=== PATIENT | female | born 1995 | race Caucasian/White ===

== ENCOUNTER 2019-10-15 02:42 | Inpatient (IN) | payer OTHER, SELFPAY ==
[2019-10-15] VITALS (25 sets, daily range): BP systolic 95–126; BP diastolic 36–87; PULSE 57–97; RESP 16–18; TEMP 36.1–37.3; O2SAT 97–100; BMI 31.7
[2019-10-15] MEDS: Lactated Ringers 1,000 ML 999 ML IV (03:45)
[2019-10-15 04:14] LABS: Absolute Lymphocyte Count 3.58 X10^3/uL (0.83-4.51); Absolute Neutrophil Count 9.2 X10^3/uL (2.0-7.7); Basophil# 0.08 X10^3/uL; Basophil% 0.6 % (0-1); Eosinophil# 0.12 X10^3/uL; Eosinophils% 0.8 % (0-5); Hematocrit 34.1 % (37-47); Hemoglobin 10.9 g/dL (12.0-15.0); Lymphocyte # 3.58 X10^3/ul (4.0); Lymphocyte % 24.7 % (19-41); Mean Corpuscular Hgb 27.7 pg (27.0-32.0); Mean Corpuscular Volume 86.5 fL (81-99); Mean Platelet Vol. 12.4 fl (6.2-12.0); Monocyte# 1.36 X10^3/uL; Monocyte% 9.4 % (0-10); NRBC Flagged by Analyzer 0 % (0-5); Neutrophil # 9.21 X10^3/uL (2.7-7.7); Neutrophil % 63.6 % (47-70); Platelet Count 198 K/mm3 (150-450); RBC Distribution Width CV 12.4 % (11.6-14.6); RBC Distribution Width SD 38.9 fl (35.1-43.9); Red Blood Count 3.94 M/mm3 (4.2-5.4); White Blood Count 14.5 K/mm3 (4.4-11.0)
[2019-10-15] MEDS: Sodium Citrate/Citric Acid 30 ML UDC PO (06:07)
[2019-10-15] MEDS: Lactated Ringers 1,000 ML 150 ML IV (06:07)
--- NOTE | 2019-10-15 06:13 | HP.PCM_ITS ---
- Problem List (1) 39 weeks gestation of Status: Acute (2) History of shoulder dystocia in prior Status: Acute (3) History of third degree perineal laceration Status: Acute (4) LGA (large for gestational age) fetus Status: Acute History Date of Admission: 10/15/19 Final IZABELLA: 10/21/19 Gestational age: 39 Weeks and 1 Days History of this : This is a 24 year-old, G 2, P 1, at 39 weeks gestational age who presents with SROM at home for clear fluid around 1 AM. She was a scheduled at 730 this morning. She is feeling mild contractions. No bleeding. Good movement. Allergies No Known Allergies Allergy (Verified 10/15/19 04:11) Home Medications: Home Medications NK 10/15/19 Smoking Status: Never smoker Number of Fetus(es): 1 NST - FHR Rate Baby A FHR Category:: Category I Uterine Activity:: ctx q 4-5 min History Past Pregnancies: Past Pregnancies Delivery Date Name GA/ Weeks Outcome Route Wt Sex Labor Length Anesthesia Delivery Location Provider FOB 40 wks 60 sec shoulder dystocia 8lb 8oz Labs: See [facility] record Expected Delivery Method: Primary Section Physical Exam Vitals: Vital Signs Temp Pulse BP Pulse Ox 99.2 F H 88 120/79 97 10/15/19 03:17 10/15/19 05:57 10/15/19 05:57 10/15/19 03:17 General: Alert, No apparent distress HEENT: Atraumatic Cardiovascular: Regular rate Lungs: Clear to auscultation Abdomen: Soft, Gravid Extremities:: No edema Neurological: Neuro grossly intact [employer]: Normal external genitalia Estimated gestational size: Large for gestational age Presentation: Cephalic Cervix Dilation (cm): 2 Station: -3 Effacement (%): 50 Assessment/Plan All Active Problems 39 weeks gestation of (Acute) History of shoulder dystocia in prior (Acute) History of third degree perineal laceration (Acute) LGA (large for gestational age) fetus (Acute) This is a 24 year-old, G 2, P 1, at 39 weeks gestational age with SROM. She was scheduled for a section today. She has a history of a shoulder dystocia and a third-degree perineal laceration with an 8 pound in the prior . A third trimester growth ultrasound was obtained in this , and this baby is felt to be the same size as the prior. Discussed risk of recurrence with a shoulder dystocia and third-degree perineal laceration. Best risks of a shoulder dystocia and third-degree perineal laceration. Discussed risks and benefits of an elective 39-week induction. Discussed risks and benefits of a scheduled primary section. After discussion and all questions being answered, the patient desires to proceed with a section. She understands the risk, benefits, alternatives of a section. To proceed with scheduled surgery. has otherwise been uncomplicated. She is rubella nonimmune and will need MMR . Otherwise routine preop and Intra-Op care.
[2019-10-15] MEDS: Cefazolin 2 GM in 0.9% Normal Saline 100 ML IV (06:30)
--- NOTE | 2019-10-15 07:46 | PCM.OPRPT ---
Problem List (1) 39 weeks gestation of Status: Acute (2) History of shoulder dystocia in prior Status: Acute (3) History of third degree perineal laceration Status: Acute (4) LGA (large for gestational age) fetus Status: Acute Report of Operation Date of Procedure: 10/15/19 Pre-Operative Diagnosis: 39 week gestation, LGA, history of shoulder dystocia, history of 3rd degree perineal laceration Post-Operative Diagnosis: As above Surgery/Procedure Performed:: PLTCS via pfannenstiel incision Description of Surgical Findings:: Normal uterus, bilateral tubes, bilateral ovaries. Viable female infant in cephalic presentation weighing 8 pounds 1 ounce. Normal appearing placenta with three-vessel cord. Type of Anesthesia:: Spinal Special Medications: None Specimen's removed: Placenta Drains: Davidson Estimated Blood Loss (mL): 1000 Description of Procedure: Patient was taken to the operating room where spinal anesthesia was found to be adequate. She was prepped and draped in the dorsal position with a leftward tilt. A Pfannenstiel skin incision was made with a scalpel and carried down to the underlying layer of fascia. The fascia was incised the midline. The fascia was extended laterally using Matos scissors. The fascia was dissected off the rectus muscles with a combination of sharp and blunt dissection. The rectus muscles were in the midline and the peritoneum was entered with good visualization of the bladder. The peritoneal incision was extended bluntly. A bladder flap was created. A low transverse incision was made on the uterus with a scalpel. Infant was delivered without any force or delay in vertex presentation. Viable female infant was delivered easily through the hysterotomy. The cord was clamped and cut after 60 sec delay and the was handed off to the nursery staff. The placenta was removed with manual extraction and noted to be normal-appearing with three-vessel cord. The uterus was exteriorized from the abdomen. The uterus was cleared of all clot and debris. Hysterotomy was closed in usual fashion with Vicryl in a double layer closure. Several additional [id number] sutures were placed for hemostasis. Hysterotomy was noted to be hemostatic. The uterus was placed back in the abdomen. Arrista was placed over the hysterotomy. Peritoneum was closed in a running fashion with Vicryl. The fascia was closed in running fashion with Vicryl. Subcutaneous space was irrigated and made hemostatic with Bovie cautery. The subcutaneous space was reapproximated with Vicryl. The skin was closed in subcuticular fashion using Monocryl. Steri-Strips and dressing were placed. Instrument and sponge counts were correct. The patient was taken to recovery in stable condition. Grafts/Implants Used: None - Admit VTE Documentation VTE Present on Admission: No VTE Mechan Device Prophylaxis: SCD's Delivery Indications for : Desires elective sterilization Drain: Davidson to straight drain Cord Entanglement: Around neck x 1, loose Nuchal Cord Compression: Without compression Cord Vessel Description: 3 Vessels Infant Gender: Female (1 minute): 9 (5 minute): 9 Delayed cord clamping: Yes Antibiotic Given: Ancef 2 grams IV x1 Pt instructed on risks of surgery: Bleeding, Infection, Need for Future C-Sections, Injury to surrounding structure(s) including bowel and bladder Complications: None - Admit VTE Documentation VTE Present on Admission: No VTE Mechan Device Prophylaxis: SCD's VTE Pharm Prophylaxis ordered?: Yes
[2019-10-15] MEDS: Oxytocin 30 units/NS 500 ml 30 UNITS/500 ML IV.SOLN 167 UNITS IV (08:00)
[2019-10-15] MEDS: Lactated Ringers 1,000 ML 100 ML IV (11:19)
[2019-10-15] MEDS: Ondansetron 4 MG/2 ML Vial IV (11:25)
[2019-10-15] MEDS: DiphenhydrAMINE 25 MG Capsule PO (12:52)
[2019-10-15] MEDS: Ketorolac 30 MG/ML Syringe IV ×2 (13:30→20:30)
[2019-10-15] MEDS: Enoxaparin 40 MG/0.4 ML Syringe SC (20:29)
[2019-10-15] MEDS: 0.9% Saline Lock 10 ML Syringe IV (20:56)
[2019-10-16 00:57] VITALS: BP 97/65; PULSE 71; RESP 18; TEMP 36.6
[2019-10-16] MEDS: Ketorolac 30 MG/ML Syringe IV ×2 (02:05→08:52)
[2019-10-16] MEDS: 0.9% Saline Lock 10 ML Syringe IV ×2 (02:06→08:52)
[2019-10-16 05:17] VITALS: BP 103/42; RESP 18; TEMP 36.6
--- NOTE | 2019-10-16 05:43 | NURSING ---
RN attempted blood draw x2 for AM repeat CBC with no drawback attained. This RN asked Rima Bradley RN to attempt blood draw.
[2019-10-16 05:56] LABS: Hematocrit 28.9 % (37-47); Hemoglobin 8.7 g/dL (12.0-15.0); Mean Corp Hgb Conc 30.1 g/dL (32-36); Mean Corpuscular Hgb 27.1 pg (27.0-32.0); Mean Platelet Vol. 12.3 fl (6.2-12.0); Platelet Count 173 K/mm3 (150-450); RBC Distribution Width CV 12.8 % (11.6-14.6); RBC Distribution Width SD 42.2 fl (35.1-43.9); Red Blood Count 3.21 M/mm3 (4.2-5.4); White Blood Count 15.9 K/mm3 (4.4-11.0)
--- NOTE | 2019-10-16 07:42 | PCM.PN.OB ---
Patient Problems: Active and Suspected Problems 39 weeks gestation of (Acute) History of shoulder dystocia in prior (Acute) History of third degree perineal laceration (Acute) LGA (large for gestational age) fetus (Acute) Subjective: Doing well. Pain well controlled. Ambulating voiding without difficulty. Lochia normal. She denies lightheadedness, dizziness, chest pain, shortness of breath, leg pain. She is requesting to go home today. - Physical Exam Vitals/I&O's: Vital Signs Temp Pulse Resp BP Pulse Ox 97.8 F 71 18 103/42 L 100 10/16/19 05:17 10/16/19 00:57 10/16/19 05:17 10/16/19 05:17 10/15/19 20:50 Oxygen Delivery Method Room Air Weight: 162 lb 7.691 oz Body Mass Index (BMI) 31.7 Intake and Output for Last 24 Hours 10/14/19 10/15/19 10/16/19 23:59 23:59 23:59 Intake Total 2708.64 / 2708.64 Output Total 700 / 700 Balance 2007.64 / 2007.64 General: Alert, No apparent distress HEENT: Atraumatic Abdomen: Soft, Non Tender, - - FF@U Extremities: No Calf Tenderness Skin: No rashes Neurological: Neuro grossly intact Psych/Mental Status: Normal Affect, Appropriate Laboratory Results 10/16/19 05:40: WBC 15.9 H, RBC 3.21 L, Hgb 8.7 L, Hct 28.9 L, MCV 90.0, MCH 27.1, MCHC 30.1 L D, RDW Std Deviation 42.2, RDW Coeff of Mary 12.8, Plt Count 173, MPV 12.3 H Current Medications Acetaminophen (Tylenol) 1,000 mg PO Q8H PRN PRN Reason: Pain Score 1-3/10 Bisacodyl (Dulcolax) 10 mg RECTAL UD PRN PRN Reason: If no BM Diphenhydramine HCl (Benadryl) 25 mg PO Q6H PRN PRN PRN Reason: ITCHING Stop: 10/16/19 09:16 Last Admin: 10/15/19 12:52 Dose: 25 mg Documented by: Enoxaparin Sodium (Lovenox) 40 mg SC DAILY [facility] Last Admin: 10/15/19 20:29 Dose: 40 mg Documented by: Hydrocortisone (Hytone) 1 applic TOPICAL TID PRN PRN; Protocol PRN Reason: Discomfort Naloxone HCl 4 mg/ Dextrose 504 mls @ 0 mls/hr IV .Q0M PRN; Protocol PRN Reason: Respiratory depression Ibuprofen (Motrin) 600 mg PO Q6H PRN PRN PRN Reason: Pain Score 1-3/10 Ketorolac Tromethamine (Toradol (Bkc)) 30 mg IV Q6H [facility] Stop: 10/17/19 08:01 Last Admin: 10/16/19 02:05 Dose: 30 mg Documented by: Methylergonovine Maleate (Methergine) 0.2 mg IM X1 PRN PRN Reason: Uterine Atony Naloxone HCl (Narcan) 0.02 mg IV Q1M PRN PRN Reason: RR <10 and pt unresponsive Ondansetron HCl (Zofran) 4 mg IV Q4H PRN PRN PRN Reason: Nausea Last Admin: 10/15/19 11:25 Dose: 4 mg Documented by: Oxycodone HCl (Oxyir) 5 - 10 mg PO Q4H PRN PRN PRN Reason: Pain Score 4-10/10 Prochlorperazine Edisylate (Compazine Iv) 10 mg IV Q6H PRN PRN PRN Reason: NAUSEA Senna/Docusate Sodium (Senokot-S, Lorelei-Colace) 0 tablet PO DAILY PRN PRN Reason: Constipation Simethicone (Mylicon) 80 mg PO PCHS PRN PRN Reason: Indigestion/stomach pain Sodium Chloride () 5 - 15 ml IV UD PRN PRN Reason: SALINE FLUSH Last Admin: 10/16/19 02:06 Dose: 10 ml Documented by: Medical Necessity - Tobacco Use Smoking Status: Never smoker Assessment/Plan All Active Problems 39 weeks gestation of (Acute) History of shoulder dystocia in prior (Acute) History of third degree perineal laceration (Acute) LGA (large for gestational age) fetus (Acute) POD#1 s/p PLTCS - Doing well and desires to go home today - Dispo: Discharge instructions and follow up reviewed
--- NOTE | 2019-10-16 07:51 | PCM.DCCSEC ---
Discharge Diet: No Restrictions Discharge Activity: May not drive while taking narcotic pain medications., May Shower, May Take a Tub Bath May resume sexual activity in: 6 weeks Ice area for (Minutes): 15 Weight Bearing Status: Weight bearing as tolerated Lifting Restrictions: Nothing greater than 15 lbs Call your doctor if your incision/area has: Sudden Increased Bleeding, Increased Pain/ Swelling, Increased Redness, Foul Smelling Discharge, Swelling at the incision site Call your doctor if you observe: Fever of 101 or Higher, Inability to urinate, Inability to have a bowel movement, Using more than one pad per hour, Shortness of breath, Dizziness, Fainting spells, Chest pain, Increased palpitations (irregular heartbeat), Calf discomfort, Uncontrolled pain Suture Line Care: Avoid Pulling/Pushing, Avoid Pinching/Bending Remove Dressing in (days):: 2 Cleanse incision/area with: Soap & Water Additional Instructions: If you experience any of the following, contact your healthcare provider. Bleeding that soaks a pad every hour for 2 hours Fever 100.4 or higher Unrelieved incision or abdominal pain Swelling, redness, discharge or bleeding from your incision or episiotomy site Your incision begins to separate Problems urinating (including inability to urinate or burning while urinating). Visual changes Severe headache Flu-like symptoms Pain or redness in one of both of your breasts Pain, warmth, tenderness or swelling in your legs, especially the calf area Frequent nausea and vomiting Symptoms of depression or anxiety If you experience any of the following, call 911 or go to the nearest Emergency Room. Chest pain Problems breathing Seizure activity Partial or complete paralysis of a body part, slurred speech, weakness or drooping of the face, or a sudden inability to walk or hold your balance Allergies/Adverse Reactions: Allergies No Known Allergies Allergy (Verified 10/15/19 04:11) Medications to take at Discharge Docusate Sodium [Colace] 100 mg PO BID #60 cap 10/16/19 Ferrous Sulfate 325 mg PO DAILY #60 tab 10/16/19 Ibuprofen [Motrin] 800 mg PO TID PRN PRN #60 tab 10/16/19 Oxycodone HCl/Acetaminophen [Percocet 5/325] 1 tablet PO Q6H PRN PRN 7 Days #28 tablet 10/16/19 The following prescriptions were given: Docusate Sodium [Colace] 100 mg PO BID #60 cap Transmission Status: [facility] Ferrous Sulfate 325 mg PO DAILY #60 tab Transmission Status: Pending to [facility] Ibuprofen [Motrin] 800 mg PO TID PRN PRN #60 tab PRN Reason: Pain Score 1-10/10 Transmission Status: [facility] to [facility] Oxycodone HCl/Acetaminophen [Percocet 5/325] 1 tablet PO Q6H PRN PRN 7 Days #28 tablet PRN Reason: Pain Score 6-10/10 Transmission Status: [facility] Follow-Up: Call to make an appointment with your doctor for an incision check in 1-2 weeks. You will also need a 6 week post- follow up appointment. Test results from this visit will be discussed in further detail at your follow-up appointment, if applicable. Please Follow Up With: Lu Cerda DO When: 1 week (can be virtual visit) and 6 weeks for visit Primary Care Physician: Care Physician,No Primary [Primary Care Provider] -
[2019-10-16 08:00] VITALS: BP 107/65; PULSE 69; RESP 16; TEMP 36.4
[2019-10-16] MEDS: Enoxaparin 40 MG/0.4 ML Syringe SC (08:53)
--- NOTE | 2019-10-16 12:15 | NURSING ---
pt refuses the MMR
== END 2019-10-16 13:15 | disposition home or self-care (01) | DRG 788 ==
PROVIDERS: Advanced Practice Midwife; Admitting Provider Obstetrics & Gynecology; Referring Provider Obstetrics & Gynecology; Visit Provider Obstetrics & Gynecology
PROC: 10D00Z1 Extraction of Products of Conception, Low, Open Approach (ICD-10-PCS; CPT 59514; principal; 2019-10-15 07:15)
DX: O36.63X0 Maternal care for excessive fetal growth, third trimester, not applicable or unspecified (principal); O69.81X0 Labor and delivery complicated by cord around neck, without compression, not applicable or unspecified; Z37.0 Single live birth; Z3A.39 39 weeks gestation of pregnancy; Z87.59 Personal history of other complications of pregnancy, childbirth and the puerperium; Z11.59 Encounter for screening for other viral diseases
CPT/HCPCS: 59050; 85025; 85027; 86850; 86900; 86901; 87635; 99218; G2023; J7120; A4216; G0378; J2405; U0004

== ENCOUNTER 2019-11-28 06:12 | Emergency (ER) | payer OTHER, SELFPAY ==
[2019-10-15 04:15] VITALS: BMI 31.7
[2019-11-28 06:13] VITALS: BP 128/71; PULSE 122; RESP 16; TEMP 39.4; O2SAT 97; BMI 26.9
--- NOTE | 2019-11-28 06:17 | EKG12_ITS ---
Test Reason : SOB Blood Pressure : / mmHG Vent. Rate : 099 BPM Atrial Rate : 099 BPM P-R Int : 140 ms QRS Dur : 070 ms QT Int : 324 ms P-R-T Axes : 047 040 012 degrees QTc Int : 415 ms Normal sinus rhythm Normal ECG Confirmed by PEDRO GUTIERREZ, YINA ([id number]), commissioning editor BABS CLANCY ([id number]) on 11/30/2019 1:04:09 PM Referred By: JONES Confirmed By:YINA VASQUEZ MD
--- NOTE | 2019-11-28 06:19 | ED.VIS.GEN ---
History of Present Illness Chief Complaint: Abd Pain Informant: Patient Narrative: 24-year-old female with no significant past medical history presents with concern for left side pain. States that she is 6 weeks and presents with pain in her left ribs worse with inspiration. States is been present for the past 3 days. States that she cannot catch her breath this evening. Patient had . No drainage from her incision. No urinary symptoms. Patient felt that her pain was secondary to her beginning to exercise again by doing crunches and walking. Denies any fever, chills, cough, nausea, vomiting, abdominal pain, vaginal bleeding or discharge. Past Medical History - Allergies and Home Meds Allergies/Adverse Reactions: Allergies No Known Allergies Allergy (Verified 11/28/19 06:17) Primary Care Physician: Keila Charles MD [STAFF PHYSICIAN] - 3-5 Days if not improving Prior records reviewed: Yes Past Medical History: None Surgical History: - - C section Lives: Spouse/ Significant Other Smoking Status: Never smoker Alcohol: None Drugs: None Review of Systems General: Denies: Chills, Fever, Sweats Eyes: Denies: Visual changes - bilaterally, Diplopia ENT: Denies: Rhinorrhea, Sore throat Cardiovascular: Denies: Chest pain, Palpitations Respiratory: Reports: Dyspnea. Denies: Cough, Dyspnea on exertion Gastrointestinal: Denies: Abdominal pain, Nausea, Vomiting, Diarrhea, Melena, Hematochezia Genitourinary: Denies: Dysuria, Hematuria, Frequency Musculoskeletal: Denies: Back pain, Extremity Pain Skin: Denies: Rash, Wounds Neurological: Denies: Headache, Weakness, Numbness Physical Exam Vital Signs/Narrative: Vital Signs Temp Pulse Resp BP Pulse Ox 11/28/19 06:13 102.9 F H 122 H 16 128/71 H 97 General: Well nourished, Well developed, No Acute Distress Head: Normocephalic, Atraumatic Eyes: Perrl, EOMI ENT: Moist mucous membranes, No rhinorrhea Neck: Supple, Nontender Cardiovascular: Regular rhythm, No murmurs, Tachycardia Respiratory: No distress, CTA bilaterally, Chest nontender Abdomen: Soft, Nontender, Nondistended, Normal bowel sounds Back: Nontender, Normal Inspection Extremities: Nontender, No edema Skin: Normal color, No rash Neurological: Alert, Oriented x3, Cranial nerves II-XII grossly intact, Normal Strength, Normal Sensation Psychological: Normal affect, Normal Mood Diagnostic/Tx/Re-eval - Medical Decision Making Appears well and nontoxic. Tachycardic upon arrival. Shortness of breath worse with inspiration. Sepsis work-up was ordered and patient was signed out to Dr. Gaines at 0700. ED Disposition - Plan for ED Patient: Disposition: Home or Assisted Living Instructions: ED FUO Adult Referrals: Keila Charles MD [STAFF PHYSICIAN] - 3-5 Days if not improving
[2019-11-28 06:27] VITALS: TEMP 39.2
[2019-11-28] MEDS: Acetaminophen 500 MG Tablet 1000 MG PO (06:31)
[2019-11-28] MEDS: 0.9% Normal Saline 1,000 ML 999 ML IV (06:31)
[2019-11-28 06:36] LABS: Absolute Lymphocyte Count 0.99 X10^3/uL (0.83-4.51); Absolute Neutrophil Count 9.9 X10^3/uL (2.0-7.7); Basophil# 0.03 X10^3/uL; Basophil% 0.3 % (0-1); Eosinophil# 0.04 X10^3/uL; Eosinophils% 0.3 % (0-5); Hematocrit 35.1 % (37-47); Hemoglobin 10.8 g/dL (12.0-15.0); Lymphocyte # 0.99 X10^3/ul (4.0); Lymphocyte % 8.3 % (19-41); Mean Corp Hgb Conc 30.8 g/dL (32-36); Mean Corpuscular Hgb 26.6 pg (27.0-32.0); Mean Corpuscular Volume 86.5 fL (81-99); Mean Platelet Vol. 10.7 fl (6.2-12.0); Monocyte# 0.83 X10^3/uL; NRBC Flagged by Analyzer 0 % (0-5); Neutrophil % 83.5 % (47-70); Platelet Count 199 K/mm3 (150-450); RBC Distribution Width CV 12.7 % (11.6-14.6); RBC Distribution Width SD 40.3 fl (35.1-43.9); Red Blood Count 4.06 M/mm3 (4.2-5.4); White Blood Count 11.9 K/mm3 (4.4-11.0)
[2019-11-28 06:37] LABS: Bacteria 0 SEEN /hpf (None Seen); Mucous, Urine 0 SEEN /hpf (<or=2+); Red Blood Cells-Urine 0 SEEN /hpf (0-5)
[2019-11-28 06:45] LABS: Color, Urine Yellow (Yellow); Glucose, Dipstick Normal (Normal); Ketone-Dipstick Negative (Negative); Leukocyte Esterase-Dipstick 500 /ul (Negative); Nitrite-Dipstick Negative (Negative); Occult Blood-Urine 25 /ul (Negative); Protein-Dipstick 30 mg/dl (Negative); Urine Bilirubin Dipstick Negative (Negative); Urine Clarity Sl. Cloudy (Clear); Urine Urobilinogen Normal (Normal)
[2019-11-28 06:52] VITALS: BP 92/77; PULSE 92; RESP 23; TEMP 39.2; O2SAT 95
[2019-11-28 06:57] LABS: ALB/GLOB Ratio 0.7 RATIO (0.9-2.4); AST(SGOT) 20 U/L (15-37); Alanine Aminotransfer ALT/SGPT 23 U/L (13-56); Albumin, Serum 3.1 g/dL (3.2-5.0); Alkaline Phosphatase 112 U/L (45-117); Anion Gap 7 (5-15); BUN 8 mg/dL (7-18); BUN/Creat Ratio 7.8 RATIO (10-20); Calcium,Total 8.7 mg/dL (8.5-10.1); Chloride 106 mmol/L (98-107); Creatinine, Serum 1.03 mg/dL (0.55-1.02); EST Glomerular Filtration Rate 69 mL/min (>60); Est Glom Filt Rate - Afr Amer 83 mL/min (>60); Estimated Creatinine Clearance 59.45 ml/min; Globulin 4.5 g/dL (2.2-4.2); Glucose 123 mg/dL (74-106); Potassium 3.4 mmol/L (3.5-5.1); Protein, Total 7.6 g/dL (6.4-8.2); Sodium Level 138 mmol/L (136-145)
[2019-11-28 06:59] LABS: Squamous Epithelial Cells - UA 10-25 SEEN /hpf (5-10)
[2019-11-28 07:00] LABS: White Blood Cells 50-100 SEEN /hpf (0-5)
--- NOTE | 2019-11-28 07:00 | RAD_ITS ---
STUDY: X-RAY CHEST REASON FOR EXAM: Female, 24 years old. DYSPNEA. 6 WEEKS POST . PATIENT STARTED EXERCISING THIS WEEK AND HAS INCREASING PAIN WITH BREATHING ALONG BOTH SIDES OF LOWER RIBS TECHNIQUE: Single AP portable view of the chest. COMPARISON: None. FINDINGS: The lungs are clear and expanded. There is no demonstrated pleural abnormality. Normal size heart. Normal mediastinum and michell. Normal visualized pulmonary arteries. Normal visualized aortic arch and descending thoracic aorta. Normal visualized thoracic spine. Normal visualized ribs, clavicles, and shoulders. There is no demonstrated abnormality of the visualized soft tissue structures of the upper abdomen. RAD/Chest 1 View (Portable) IMPRESSION: Normal x-ray examination of the chest. Electronically Signed: Romario Vaca MD at 7:17 EDT Tel , Service support ,
[2019-11-28 07:01] LABS: Lactic Acid 0.7 mmol/L (0.4-1.9)
--- NOTE | 2019-11-28 07:16 | CT_ITS ---
STUDY: CTA CHEST REASON FOR EXAM: Female, 24 years old. PT STATED RIB PAIN WITH EXERCISE 6 WEEKS RADIATION DOSAGE (If Supplied By Facility): CTDIvol = ( 5.38 ) mGy, DLP = ( 145.37 ) mGycm TECHNIQUE: The examination was performed with the intravenous administration of 100ml isovue 370. Post-processing of the angiographic images was performed, with multiplanar reformation and 3D reconstruction. Individualized dose optimization techniques were used for this CT. COMPARISON: None. FINDINGS: Normal enhancement of the main pulmonary artery and right and left pulmonary arteries. Normal enhancement of the bilateral peripheral pulmonary arteries. There is no demonstrated pulmonary embolism. Normal thoracic aorta and visualized great vessels. There is no demonstrated aortic dissection. Normal heart and pericardium. Normal mediastinum. Normal hilar regions. Normal visualized trachea and bronchi. The lungs are well expanded. Normal pulmonary parenchyma. Normal pleura. Normal chest wall structures. Normal osseous structures. Normal visualized upper abdomen. CT/CTA Chest W/WO Contrast IMPRESSION: Normal CTA chest examination, without a demonstrated pulmonary embolism or arterial dissection. Electronically Signed: Romario Vaca MD at 8:05 EDT Tel , Service support ,
[2019-11-28 07:25] VITALS: BP 102/62; PULSE 79; RESP 20; O2SAT 97
[2019-11-28 08:01] VITALS: PULSE 70; RESP 15; TEMP 37; O2SAT 94
--- NOTE | 2019-11-28 08:09 | ED.DCSUM_ITS ---
- ER Visit Summary Date of Service: 11/28/19 This patient was checked out to me with labs and chest x-ray pending. Test Results: Abnormal Lab Results 11/28/19 11/28/19 11/28/19 06:20 06:20 06:20 WBC 11.9 H RBC 4.06 L Hgb 10.8 L Hct 35.1 L MCV 86.5 MCH 26.6 L MCHC 30.8 L RDW Std Deviation 40.3 RDW Coeff of Mary 12.7 Plt Count 199 MPV 10.7 Immature Gran % (Auto) 0.600 Neut % (Auto) 83.5 H Lymph % (Auto) 8.3 L [place] % (Auto) 7.0 Eos % (Auto) 0.3 Baso % (Auto) 0.3 Absolute Neuts (auto) 9.9 H Absolute Lymphs (auto) 0.99 Nucleated RBC % 0 Sodium 138 Potassium 3.4 L Chloride 106 Carbon Dioxide 25.0 Anion Gap 7 BUN 8 Creatinine 1.03 H Estim Creat Clear Calc 59.45 Est GFR (MDRD) Af Amer 83 Est GFR (MDRD) Non-Af 69 BUN/Creatinine Ratio 7.8 L Glucose 123 H Lactic Acid 0.7 Calcium 8.7 Total Bilirubin 0.40 AST 20 ALT 23 Alkaline Phosphatase 112 Total Protein 7.6 Albumin 3.1 L Globulin 4.5 H Albumin/Globulin Ratio 0.7 L Urine Color Urine Clarity Urine pH Ur Specific Sebastian Urine Protein Urine Glucose (UA) Urine Ketones Urine Occult Blood Urine Nitrite Urine Bilirubin Urine Urobilinogen Ur Leukocyte Esterase Urine RBC Urine WBC Ur Squamous Epith Cells Urine Bacteria Urine Mucus 11/28/19 06:30 WBC RBC Hgb Hct MCV MCH MCHC RDW Std Deviation RDW Coeff of Mary Plt Count MPV Immature Gran % (Auto) Neut % (Auto) Lymph % (Auto) [place] % (Auto) Eos % (Auto) Baso % (Auto) Absolute Neuts (auto) Absolute Lymphs (auto) Nucleated RBC % Sodium Potassium Chloride Carbon Dioxide Anion Gap BUN Creatinine Estim Creat Clear Calc Est GFR (MDRD) Af Amer Est GFR (MDRD) Non-Af BUN/Creatinine Ratio Glucose Lactic Acid Calcium Total Bilirubin AST ALT Alkaline Phosphatase Total Protein Albumin Globulin Albumin/Globulin Ratio Urine Color Yellow Urine Clarity Sl. Cloudy Urine pH 6.0 Ur Specific Sebastian 1.010 Urine Protein 30 H Urine Glucose (UA) Normal Urine Ketones Negative Urine Occult Blood 25 H Urine Nitrite Negative Urine Bilirubin Negative Urine Urobilinogen Normal Ur Leukocyte Esterase 500 H Urine RBC 0 SEEN Urine WBC 50-100 SEEN Ur Squamous Epith Cells 10-25 SEEN Urine Bacteria 0 SEEN Urine Mucus 0 SEEN Clinical Impression(s) from Imaging Studies Chest X-Ray 11/28/19 07:00 IMPRESSION: Normal x-ray examination of the chest. Electronically Signed: Romario Vaca MD at 7:17 EDT Tel , Service support , Chest CTA 11/28/19 07:16 IMPRESSION: Normal CTA chest examination, without a demonstrated pulmonary embolism or arterial dissection. Electronically Signed: Romario Vaca MD at 8:05 EDT Tel , Service support , Emergency Department Course and Treatment: The patient is resting comfortably. I discussed with her that she does have a fever of 102.5 degrees. There is no obvious source for this. She denies sore throat, cough, nausea, vomiting, diarrhea, dysuria, or frequency. She is not breast-feeding and denies any signs of mastitis. She denies any vaginal discharge. At this point I do not have an explanation for her fever. She does understand this. Her urine was sent for culture. It appears contaminated and there are no bacteria. She denies any urinary symptoms. Treatment Plan: Patient will be discharged with symptomatic care. Push fluids. Use Tylenol and/or ibuprofen for fever and myalgias. Follow-up with Dr. Charles in 3 to 5 days if not improving. Return to the emergency department for any worsening symptoms. Disposition: To home in improved and stable condition. Impression: 1. Atypical chest pain. 2. Fever, uncertain cause. This note was generated with [employer]com[employer] software. It may contain incorrect words, spelling, and punctuation that were not noted in review of the chart prior to signing ED Disposition - Plan for ED Patient: Instructions: ED FUO Adult Referrals: Keila Charles MD [STAFF PHYSICIAN] - 3-5 Days if not improving
[2019-11-28 08:32] VITALS: PULSE 66; RESP 15; O2SAT 99
[2019-11-28 09:30] LABS: Probe Check PASS; Specimen Processing Control PASS
== END 2019-11-28 08:33 | disposition home or self-care (01) ==
LOC: ED 07:57
PROVIDERS: Emergency Provider Emergency Medicine
DX: O90.89 Other complications of the puerperium, not elsewhere classified (principal); R07.89 Other chest pain; R50.9 Fever, unspecified; R06.02 Shortness of breath
CPT/HCPCS: 71045; 71275; 80053; 81001; 83605; 85025; 87040; 87086; 87088; 87186; 87635; 93005; 96360; 99285; G2023; J7030; Q9967; U0003

== ENCOUNTER 2021-12-04 20:55 | Outpatient (CLI) | payer OTHER, SELFPAY ==
[2021-12-04 21:09] VITALS: BP 111/68; PULSE 137; O2SAT 99
[2021-12-04 21:10] VITALS: TEMP 36.6
[2021-12-04 22:28] VITALS: BMI 35.5
--- NOTE | 2021-12-09 09:48 | OB.TRI.NOTE ---
HPI - General General Date of Service: 12/04/21 Chief Complaint: Contractions HPI Narrative GIANLUCA GARCIA, is a 26 F who presents at 37w2d with complaint of contractions. No vaginal bleeding or leakage of fluid. Good movement. Maternal Data Information Final IZABELLA: 12/23/21 PFSH PFS Home Medications [id number] 1 mg tablet 1 tab PO DAILY 12/04/21 [History Last Taken Unknown] Allergy/AdvReac Type Severity Reaction Status Date / Time No Known Allergies Allergy Verified 12/04/21 22:30 Social History Smoking Status: Never smoker History Elective abortions Hx Para 1 Spontaneous abortions Hx # Term Pregnancies Ectopic pregnancies Hx # Pregnancies Multiple births # of living children Physical Exam Narrative closed cervix per nursing exam NST FHR Rate Baby A Baseline: 135 Variability:: Moderate Accelerations:: 15 x 15 Decelerations:: None NST Reactive:: Yes Uterine Activity:: Irregular, mild to palpation per nursing staff Assessment & Plan (1) False labor: PLAN: 1) No signs of labor, reviewed precautions and when to call 2) D/C home 3) Increase hydration
== END 2021-12-04 22:35 | disposition home or self-care (01) ==
LOC: WPOUT 21:00 → WP 21:01
PROVIDERS: Visit Provider Advanced Practice Midwife
DX: O47.1 False labor at or after 37 completed weeks of gestation (principal); Z3A.37 37 weeks gestation of pregnancy
CPT/HCPCS: 59025; 59050; 99218; G0378

== ENCOUNTER 2021-12-18 09:30 | Inpatient (IN) | payer OTHER, SELFPAY ==
[2021-12-18] VITALS (17 sets, daily range): BP systolic 93–117; BP diastolic 44–75; PULSE 65–88; RESP 16; TEMP 36.1–36.6; O2SAT 96–100; BMI 36.6
--- NOTE | 2021-12-18 | FALS_PTH ---
PATIENT: GIANLUCA GARCIA LOC: [facility] U#:[id number] AGE/SX: 26/F ROOM: WP006 RE12/18/[address]: Dr. Lu Cerda DO : 1995 BED: 1 DIS: 12/19/2021 SPEC #: [id number] RECD: 12/18/21 14:39 STATUS: GRAZYNA SOBEIDA #: [id number] ROBERT: 12/18/21 00:[address]: Lu Cerda DEPT: SURGICAL PATHOLOGY RECD BY: Yonatan Hewitt ENTERED: 12/19/21 08:39 SP TYPE: FALL TUBES OTHR DR: No Primary Care Phys Tissues: Fallopian tube Procedures: Surgery Specimen Level II HEADER OPERATION: Tubal ligation PRE-OP DIAGNOSIS: Sterilization TISSUE SUBMITTED: Fallopian tubes, suture in right tube MICROSCOPIC DIAGNOSIS Bilateral fallopian tubes, salpingectomy: Bilateral fallopian tubes, no pathologic diagnosis. Bilateral paratubal cysts. BETI:suzi 12/20/2021 MICROSCOPIC DESCRIPTION Slides are reviewed. GROSS DESCRIPTION Received in fixative is one container labeled with the patient's name and designated bilateral fallopian tubes. The specimen consists of bilateral fallopian tubes including fimbrial ends. The right fallopian tube is identified by a suture and measures 7 cm in length and up to 0.9 cm in diameter. A paratubal cyst is noted measuring 1 cm in greatest dimension. The left fallopian tube measures 7 cm in length and 0.6 cm in diameter. A paratubal cyst is noted measuring 1.5 cm in greatest dimension. Sections reveal unremarkable cut surfaces. Social Media Strategist sections are submitted in two cassettes as follows: 1 - left fallopian tube and paratubal cyst, 2 - right fallopian tube and paratubal cyst. / SJ:suzi 12/19/2021 TC:5 CPT: 57201 x2
[2021-12-18] MEDS: Lactated Ringers 1,000 ML 999 ML IV (10:55)
[2021-12-18 11:23] LABS: Absolute Lymphocyte Count 2.59 X10^3/uL (0.83-4.51); Absolute Neutrophil Count 6.7 X10^3/uL (2.0-7.7); Basophil# 0.05 X10^3/uL; Basophil% 0.5 % (0-1); Eosinophils% 0.9 % (0-5); Hematocrit 33.1 % (37-47); Hemoglobin 10.3 g/dL (12.0-15.0); Lymphocyte # 2.59 X10^3/ul (0.83-4.51); Lymphocyte % 24.5 % (19-41); Mean Corp Hgb Conc 31.1 g/dL (32-36); Mean Corpuscular Hgb 25.7 pg (27.0-32.0); Mean Corpuscular Volume 82.5 fL (81-99); Mean Platelet Vol. 11.6 fl (6.2-12.0); Monocyte# 0.98 X10^3/uL; Monocyte% 9.3 % (0-10); NRBC Flagged by Analyzer 0 % (0-5); Neutrophil # 6.74 X10^3/uL (2.7-7.7); Neutrophil % 63.6 % (47-70); Platelet Count 181 K/mm3 (150-450); RBC Distribution Width CV 14.5 % (11.6-14.6); RBC Distribution Width SD 43.6 fl (35.1-43.9); Red Blood Count 4.01 M/mm3 (4.2-5.4); White Blood Count 10.6 K/mm3 (4.4-11.0)
[2021-12-18] MEDS: Lactated Ringers 1,000 ML 150 ML IV (11:44)
[2021-12-18] MEDS: Acetaminophen 500 MG Tablet 1000 MG PO ×2 (11:45→18:29)
[2021-12-18] MEDS: Sodium Citrate/Citric Acid 30 ML UDC PO (11:45)
[2021-12-18] MEDS: Cefazolin 2 GM in 0.9% Normal Saline 100 ML IV (12:02)
--- NOTE | 2021-12-18 13:16 | HP.PCM.OB_ITS ---
HPI - General General Date of Admission: 12/18/21 Date of Service: 12/18/21 Chief Complaint: section desires sterilization HPI Narrative GIANLUCA GARCIA, is a 26 F who presents with repeat . She had 1 prior vaginal delivery with a shoulder dystocia and third-degree perineal laceration. Baby was over 8 pounds. 1 prior section. She desires a repeat C- section and sterilization. PFSH PFS Home Medications [id number] 1 mg tablet 1 tab PO DAILY 12/04/21 [History Last Taken Unknown] ferrous sulfate 325 mg (65 mg iron) tablet (Iron (ferrous sulfate)) 325 mg PO DAILY anemia 12/18/21 [History Last Taken Unknown] Allergy/AdvReac Type Severity Reaction Status Date / Time No Known Allergies Allergy Verified 12/04/21 22:30 Family History no significant family his Surgical History (Updated 12/18/21 @ 13:[address] Lu Cerda, DO) Previous section Social History Smoking Status: Never smoker History Elective abortions Hx Para 2 Spontaneous abortions Hx # Term Pregnancies Ectopic pregnancies Hx # Pregnancies Multiple births # of living children Vital Signs Vital Signs Vital Signs: 12/18/21 10:36 Temperature 97.4 F L Temperature Source Temporal Pulse Rate 84 Respiratory Rate 16 Blood Pressure 117/74 Blood Pressure Mean 88 Blood Pressure Position Semi-Fowlers Blood Pressure Location Right Arm Pulse Ox 98 Oxygen Delivery Method Room Air Weight Weight: 187 lb 9.814 oz Body Mass Index (BMI) 36.6 Labs Labs Labs: Blood Type O POSITIVE Antibody Screen NEGATIVE Hct 33.1 % (37-47) L Hgb 10.3 g/dL (12.0-15.0) L Rhogam given: No Assessment & Plan (1) 39 weeks gestation of : PLAN: Admit for routine pre op care. She desires repeat section with sterilization. She understands sterilization is permanent and irreversible and there is a risk of regret. Ancef preop. Consent has been signed. (2) History of shoulder dystocia in prior : (3) History of third degree perineal laceration: (4) LGA (large for gestational age) fetus: (5) History of section: (6) Sterilization:
--- NOTE | 2021-12-18 13:23 | OP.PCM_ITS ---
Problems Associated Problem List Diagnoses (1) Sterilization: (2) History of section: (3) 39 weeks gestation of : (4) History of shoulder dystocia in prior : (5) History of third degree perineal laceration: (6) LGA (large for gestational age) fetus: Report of Operation Date of Procedure: 12/18/21 Pre-Operative Diagnosis: 39 week gestation, history prior section, history shoulder dystocia with 3rd degree perineal laceration, LGA, desires sterilization Post-Operative Diagnosis: As above Surgery/Procedure Performed:: Repeat section with low transverse uterine incision and bilateral salpingectomy Description of Surgical Findings:: Viable male weighing 9 pounds 6 ounces. Apgars 8, 9. There are fluid. Normal-appearing placenta with a three-vessel cord, and a true knot in the cord. Surgeon: Lu Cerda migration agent: Heather MCFADDEN Type of Anesthesia: Spinal Special Medications: None Specimen's removed: Placenta Drains: Davidson Estimated Blood Loss (mL): 900 Fluids Replaced: 800 mL Description of Procedure: The patient was taken to the operating room where spinal anesthesia was found be adequate. She was prepped and draped in the dorsal position with leftward tilt. A Pfannenstiel skin incision was made with a scalpel and this was carried down to the underlying layer of fascia. The fascia was incised in midline. The fascia was extended laterally using Matos scissors. The fascia was dissected off the rectus muscles using a combination of sharp and blunt dissection. The rectus muscles were midline. The peritoneum was entered sharply with good visualization of the bladder. The peritoneal incision was extended bluntly. A bladder flap was created and there were moderate bladder adhesions. The blade was inserted. A low transverse uterine incision was made with a scalpel. Membranes were ruptured for clear fluid with an Allis. The head of the infant was flexed and brought to the hysterotomy. The was delivered through the hysterotomy without any force or delay. The was vigorous upon delivery. The cord was clamped and cut after a slight delay. The was handed off to waiting nursery staff. The placenta was removed with manual extraction. The uterus was cleared of all clot debris. Uterus was exteriorized. The hysterotomy was closed with 1-0 Vicryl in a running locked fashion. I confirmed that the patient wanted sterilization. She desired to proceed with sterilization. The right fallopian tube was followed out to the fimbriated end using Devin clamps. The right mesosalpinx was serially clamped, cauterized, transected with the LigaSure device until reaching level of the cornua. Once at the level of the cornua the fallopian tube was transected. The right fallopian tube was sent to pathology for review. The same was performed along the left side to remove the left fallopian tube which was also sent to pathology for review. Hemostasis was noted. Uterus was placed into the abdomen. Gabriele was placed over the hysterotomy. The peritoneum was closed in a running fashion using 3-0 Vicryl. The rectus muscles were noted to be hemostatic. The fascia was closed with strata fix in a running fashion. The subcutaneous space was irrigated and hemostatic with the Bovie cautery. Subcutaneous space was reapproximated using 3-0 Vicryl. The skin was closed with 4 Monocryl in a subcuticular fashion. A dressing was placed. The patient was taken to recovery in stable condition. Instrument, sponge, sharps counts were correct x2. Grafts/Implants Used: None Procedure Start Time: 13:30 Complications None Admit VTE Documentation VTE Present on Admission: No VTE Mechan Device Prophylaxis: SCD's
[2021-12-18] MEDS: Oxytocin 30 units/NS 500 ml 30 UNITS/500 ML IV.SOLN 167 UNITS IV (13:30)
[2021-12-18] MEDS: Ketorolac 30 MG/ML Syringe IV ×2 (14:21→20:08)
[2021-12-18 14:38] LABS: Pathology Specimen OB SEE PATHOLOGY REPORT
--- NOTE | 2021-12-18 16:06 | CPS ---
left in room, nursing to start
[2021-12-18] MEDS: Lactated Ringers 1,000 ML 100 ML IV (16:59)
[2021-12-18] MEDS: Ondansetron 4 MG/2 ML Vial IV (17:09)
[2021-12-19] MEDS: Acetaminophen 500 MG Tablet 1000 MG PO ×3 (00:01→12:42)
[2021-12-19] MEDS: Enoxaparin 40 MG/0.4 ML Syringe SC (02:13)
[2021-12-19] MEDS: Ketorolac 30 MG/ML Syringe IV ×2 (02:14→07:57)
[2021-12-19] MEDS: 0.9% Saline Lock 10 ML Syringe IV ×2 (02:14→07:58)
[2021-12-19 04:20] VITALS: BP 112/58; PULSE 82; RESP 16; TEMP 36.1; O2SAT 96
[2021-12-19 05:10] LABS: Hematocrit 28.9 % (37-47); Hemoglobin 8.8 g/dL (12.0-15.0); Mean Corp Hgb Conc 30.4 g/dL (32-36); Mean Corpuscular Hgb 25.5 pg (27.0-32.0); Mean Corpuscular Volume 83.8 fL (81-99); Platelet Count 173 K/mm3 (150-450); RBC Distribution Width CV 14.6 % (11.6-14.6); RBC Distribution Width SD 43.8 fl (35.1-43.9); Red Blood Count 3.45 M/mm3 (4.2-5.4); White Blood Count 13.5 K/mm3 (4.4-11.0)
--- NOTE | 2021-12-19 07:40 | PN.OBGYN_ITS ---
Subjective Subjective Patient seen at bedside. Feeling good. Ambulating and voiding without difficulty. infant with minimal support. Denies any headache, vision changes, sob, or cp. Patient desires discharge home after 24 hours. Objective Data Objective Data Vital Signs: Vital Signs Temp Pulse Resp BP Pulse Ox O2 Del Method 96.9 F L 82 16 112/58 L 96 Room Air 12/19/21 04:20 12/19/21 04:20 12/19/21 04:20 12/19/21 04:20 12/19/21 04:20 12/19/21 04:20 Oxygen Delivery Method Room Air Weight: 187 lb 9.814 oz Body Mass Index (BMI) 36.6 Intake & Output: Intake and Output for Last 24 Hours 12/17/21 12/18/21 12/19/21 23:59 23:59 23:59 Intake Total 2601.67 / 2601.67 Output Total 1320 / 1320 550 / 550 Balance 1281.67 / 1281.67 -550 / -550 Lab / Micro Data Result Diagrams: 12/19/21 05:00 Labs: Laboratory Results - last 24 hr 12/18/21 10:50: Blood Type O POSITIVE, Antibody Screen NEGATIVE 12/18/21 10:55: WBC 10.6, RBC 4.01 L, Hgb 10.3 L, Hct 33.1 L, MCV 82.5, MCH 25.7 L, MCHC 31.1 L, RDW Std Deviation 43.6, RDW Coeff of Mary 14.5, Plt Count 181, MPV 11.6, Immature Gran % (Auto) 1.200 H, Neut % (Auto) 63.6, Lymph % (Auto) 24.5, [place] % (Auto) 9.3, Eos % (Auto) 0.9, Baso % (Auto) 0.5, Absolute Neuts (auto) 6.7, Absolute Lymphs (auto) 2.59, Nucleated RBC % 0 12/19/21 05:00: WBC 13.5 H, RBC 3.45 L, Hgb 8.8 L, Hct 28.9 L, MCV 83.8, MCH 25.5 L, MCHC 30.4 L, RDW Std Deviation 43.8, RDW Coeff of Mary 14.6, Plt Count 173, MPV 12.0 Micro: Microbiology 12/18/21 10:55 Nasal Secretion SARS-CoV-2 Antigen (Rapid) - Final ROS Eyes Eyes: Denies blurry vision, change in vision or spots in vision ENT HEENT: Denies dizziness or headache(s) Cardiovascular Cardiovascular: Denies abdominal pain, chest pain or dyspnea Respiratory/Chest Respiratory/Chest: Denies cough, dyspnea, shortness of breath at rest or shortness of breath with exertion Gastrointestinal Gastrointestinal: Denies abdominal pain, diarrhea or vomiting Genitourinary Genitourinary: Denies change in urinary stream, difficulty urinating or dysuria Musculoskeletal Musculoskeletal: Reports none Integumentary Integumentary: Denies rash Neurologic Neurologic: Denies dizziness, headache(s), memory loss or weakness Physical Exam Narrative Dressing is dry and intact Const alert and no apparent distress General Appearance: cooperative and comfortable Exam Limitations: no limitations HEENT normocephalic Eyes General Eye: normal appearance of both eyes Neck full ROM General: normal visual inspection Chest Chest: symmetrical chest wall rise Resp normal respiratory effort and normal air movement Effort and Inspection: symmetric chest movement Auscultation: clear to auscultation bilaterally Cardio regular rate and regular rhythm GI normal to inspection, nondistended, normoactive bowel sounds Back/Spine normal ROM Extremity full ROM and no calf tenderness General Extremity: normal exam except as noted Skin no rashes or lesions noted Neuro CN's II-XII intact bilaterally Psych mental status grossly normal Assessment & Plan (1) Sterilization: (2) History of section: (3) Mother currently breast-feeding: PLAN: Plan PO day 1 Repeat C/S Pain control Routine care Start oral iron daily and continue at home Anticipate discharge home this evening
[2021-12-19 07:41] VITALS: BP 98/56; PULSE 69; RESP 18; TEMP 36.1; O2SAT 96
--- NOTE | 2021-12-19 07:50 | PCM.DC.SUM ---
Providers Date of Admission: 12/18/21 Primary Care Physician: Violetta Primary Care Phys Reason For Visit: REPEAT C SECTION Diagnosis Discharge Diagnosis (1) Sterilization: Status: Acute Code(s): Z30.2 - Encounter for sterilization (2) History of section: Status: Acute Code(s): Z98.891 - History of uterine scar from previous surgery (3) Mother currently breast-feeding: Status: Acute Code(s): Z39.1 - Encounter for care and examination of lactating mother Plan PO day 1 Repeat C/S Pain control Routine care Start oral iron daily and continue at home Anticipate discharge home this evening Medications at Discharge Home Medications [id number] 1 mg tablet 1 tab PO DAILY 12/04/21 ferrous sulfate 325 mg (65 mg iron) tablet (Iron (ferrous sulfate)) 325 mg PO DAILY anemia 12/18/21 Hospital Course Operations section Summary of Care Provided Hospital Course: Patient was here for scheduled repeat section with sterilization. Physical Exam Narrative Dressing is dry and intact Const alert and no apparent distress General Appearance: cooperative and comfortable Exam Limitations: no limitations HEENT normocephalic Eyes General Eye: normal appearance of both eyes Neck full ROM General: normal visual inspection Chest Chest: symmetrical chest wall rise Resp normal respiratory effort and normal air movement Effort and Inspection: symmetric chest movement Auscultation: clear to auscultation bilaterally Cardio regular rate and regular rhythm GI normal to inspection, nondistended, normoactive bowel sounds Back/Spine normal ROM Extremity full ROM and no calf tenderness General Extremity: normal exam except as noted Skin no rashes or lesions noted Neuro CN's II-XII intact bilaterally Psych mental status grossly normal Weight / BMI Weight Weight: 187 lb 9.814 oz Body Mass Index (BMI) 36.6 ABG / Lab / Microbiology Data Result Diagrams: 12/19/21 05:00 Laboratory: Laboratory Results - last 24 hr 12/18/21 10:50: Blood Type O POSITIVE, Antibody Screen NEGATIVE 12/18/21 10:55: WBC 10.6, RBC 4.01 L, Hgb 10.3 L, Hct 33.1 L, MCV 82.5, MCH 25.7 L, MCHC 31.1 L, RDW Std Deviation 43.6, RDW Coeff of Mary 14.5, Plt Count 181, MPV 11.6, Immature Gran % (Auto) 1.200 H, Neut % (Auto) 63.6, Lymph % (Auto) 24.5, [place] % (Auto) 9.3, Eos % (Auto) 0.9, Baso % (Auto) 0.5, Absolute Neuts (auto) 6.7, Absolute Lymphs (auto) 2.59, Nucleated RBC % 0 12/19/21 05:00: WBC 13.5 H, RBC 3.45 L, Hgb 8.8 L, Hct 28.9 L, MCV 83.8, MCH 25.5 L, MCHC 30.4 L, RDW Std Deviation 43.8, RDW Coeff of Mary 14.6, Plt Count 173, MPV 12.0 Microbiology: Microbiology 12/18/21 10:55 Nasal Secretion SARS-CoV-2 Antigen (Rapid) - Final D/C Instructions Discharge Diet: No restrictions Discharge Activity: May Not Drive (for 2 weeks) and May Shower May resume sexual activity in: 6-8 weeks Weight Bearing Status: Weight bearing as tolerated Call your doctor if your incision/area has: Continuous Slow Oozing, Sudden Increased Bleeding, Increased Pain/ Swelling, Increased Redness, Foul Smelling Discharge and Swelling at the incision site Call your doctor if you observe: Fever of 101 or Higher, Inability to urinate, Inability to have a bowel movement, Using more than 1 pad per hour and Uncontrolled pain Suture Line Care: Avoid Pulling/Pushing Change Dressing in: leave in place till F/U Cleanse incision/area with: Keep Dressing Clean & Dry Please Follow Up With: Lu Cerda DO When: 1 week for incision check Meaningful Use Info Meaningful Use Diagnoses (Choose all that apply): None applicable Discharge Plan Admission Admit Date/Time: 12/18/21 09:30 Primary Reason for Your Visit: Repeat section Attending Provider: Lu Cerda Primary Care Provider: Care Physician,Violetta Primary Discharge Orders/Prescriptions Prescriptions: No Action ferrous sulfate [Iron (ferrous sulfate)] 325 mg (65 mg iron) Tablet 325 mg PO DAILY 1 mg Tablet 1 tab PO DAILY Referrals / Follow Up: Care Physician,No Primary [Primary Care Provider] - Disposition Disposition (needs filled in before D/C Order can be placed): Home, Self Care
--- NOTE | 2021-12-19 07:59 | NURSING ---
Pt offerred MMR vaccine and information given but pt refused at this time.
[2021-12-19] MEDS: Senna/Docusate Sodium 1 Tablet PO (09:58)
[2021-12-19 12:00] VITALS: BP 106/64; PULSE 70; RESP 16; TEMP 36.2; O2SAT 97
[2021-12-19] MEDS: Ferrous Sulfate 325 MG Tablet PO (12:42)
[2021-12-19 15:06] VITALS: BP 106/64; PULSE 70; RESP 16; TEMP 36.2; O2SAT 97
== END 2021-12-19 15:25 | disposition home or self-care (01) | DRG 785 ==
PROVIDERS: Admitting Provider Obstetrics & Gynecology; Visit Provider Obstetrics & Gynecology
PROC: 10D00Z1 Extraction of Products of Conception, Low, Open Approach (ICD-10-PCS; CPT 59514; principal; 2021-12-18 11:45)
DX: O34.219 Maternal care for unspecified type scar from previous cesarean delivery (principal); Z30.2 Encounter for sterilization; Z37.0 Single live birth; Z3A.39 39 weeks gestation of pregnancy; Z39.1 Encounter for care and examination of lactating mother; Z87.59 Personal history of other complications of pregnancy, childbirth and the puerperium
CPT/HCPCS: 59050; 85025; 85027; 86850; 86900; 86901; 87426; 88302; 99218; J7120; A4216; G0378; J2405